=== PATIENT | male | born 1970 | race Caucasian/White ===

== ENCOUNTER 2016-11-20 11:39 | Outpatient (CLI) | payer BC | END 2016-11-20 11:40 | disposition home or self-care (01) | DX: G47.33 Obstructive sleep apnea (adult) (pediatric) (principal) ==

== ENCOUNTER 2017-01-08 16:02 | Outpatient (CLI) | payer BC | END 2017-01-08 16:03 | disposition home or self-care (01) | DX: G47.33 Obstructive sleep apnea (adult) (pediatric) (principal) ==

== ENCOUNTER 2017-03-06 15:03 | Outpatient (CLI) | payer BC | END 2017-03-06 15:04 | disposition home or self-care (01) | LOC: SC 15:03 | PROVIDERS: ATTEND Nurse Practitioner Family | DX: G47.33 Obstructive sleep apnea (adult) (pediatric) (principal) | CPT/HCPCS: 99212; 99214 ==

== ENCOUNTER 2018-04-02 18:03 | Emergency (ER) | payer BC ==
[2018-04-02 18:08] VITALS: BP 134/86
--- NOTE | 2018-04-02 18:54 | XRAY Report ---
Procedure Date: 04/02/2018 Accession Number: [id number] / [id number] Procedure: XR - Knee 4 View RT CPT Code: FULL RESULT: EXAM: RIGHT KNEE RADIOGRAPHY EXAM DATE: 04/02/2018 06:30 PM. CLINICAL HISTORY: Pain. COMPARISON: None. TECHNIQUE: 4 views. FINDINGS: Bones: Normal. No fractures or bone lesions. Joints: Normal. No effusion. No subluxations. Soft Tissues: Normal. No soft tissue swelling. IMPRESSION: Normal knee radiography. [facility]
--- NOTE | 2018-04-02 19:42 | ED Physician Documentation ---
History of Present Illness - Stated complaint Stated Complaint: RT KNEE INJ - Chief complaint Chief Complaint: Ext Problem - History obtained from History obtained from: Patient - Additonal information Additional information: 47-year-old male presents the emergency department with ongoing knee pain for the past 2 weeks. The patient initially injured it going up and down a ladder and doing activities. No recent trauma. The patient reports pain on the medial aspect of his knee. No reports of swelling or redness. No calf pain or leg swelling. Symptoms are described as moderate. No other associated symptoms. Review of Systems Constitutional: denies: Fever Cardiac: denies: Chest pain / pressure Skin: denies: Rash Musculoskeletal: reports: Neck pain, Joint pain. denies: Extremity pain, Joint swelling Neurologic: denies: Generalized weakness, Focal weakness Immunocompromised: denies: Chemotherapy PD PAST MEDICAL HISTORY - Past Medical History Past Medical History: Yes GI: GERD - Past Surgical History Past Surgical History: Yes - Present Medications Home Medications: Ambulatory Orders Medication Instructions Recorded Confirmed Famotidine 10 mg PO DAILY 07/04/15 07/04/15 Meloxicam [Mobic] 15 mg PO DAILY PRN #20 tablet 04/02/18 Naproxen Sodium [Aleve] 04/02/18 - Allergies Allergies/Adverse Reactions: Allergies Allergy/AdvReac Type Severity Reaction Status Date / Time amoxicillin Allergy Unknown Verified 04/02/18 18:08 - Social History Does the pt smoke?: No Smoking Status: Never smoker Does the pt drink ETOH?: Yes - Immunizations Immunizations are current?: Yes - POLST Patient has POLST: No PD ED PE NORMAL - General General: Alert and oriented X 3, No acute distress - HEENT HEENT: Atraumatic, PERRL, EOMI - Derm Derm: Normal color, Warm and dry - Extremities Extremities: No deformity, Normal ROM s pain, Other (Full active range of motion of the hip, knee and ankle. There is no swelling or erythematous changes. The patient does have tenderness along medial aspect of the knee.). No: No edema, No calf tenderness / cord Results - Vitals Vitals: Vital Signs - 24 hr 04/02/18 18:05 Temperature 36.9 C Heart Rate 72 Respiratory 20 Rate Blood Pressure 134/86 H O2 Saturation 100 Oxygen O2 Source Room air - Rads (name of study) Knee x-ray Radiology: Final report received, See rad report (No fracture dislocation) PD MEDICAL DECISION MAKING - ED course ED course: The patient's symptoms may represent a meniscus injury, currently there is no evidence of a septic arthritis and the patient appears appropriate for discharge and further workup as an outpatient.The patient understands and agrees. I discussed warning signs for decompensation and recommended returning to the emergency department immediately for worsening or concerns - Sepsis Event Vital Signs: Vital Signs - 24 hr 04/02/18 18:05 Temperature 36.9 C Heart Rate 72 Respiratory 20 Rate Blood Pressure 134/86 H O2 Saturation 100 Oxygen O2 Source Room air Departure - Departure Disposition: 01 Home, Self Care Clinical Impression: Knee pain Qualifiers: Chronicity: acute Laterality: unspecified laterality Qualified Code(s): M25.569 - Pain in unspecified knee Condition: Good Instructions: ED Sprain Knee Follow-Up: Yassine Saravia MD [Primary Care Provider] - Within 1 week (If your symptoms do not improve please ask your primary care doctor about an outpatient MRI, physical therapy and a outpatient referral to orthopedics) Prescriptions: Meloxicam [Mobic] 15 mg PO DAILY PRN #20 tablet PRN Reason: pain Comments: Please return for worsening symptoms or any concerns Discharge Date/Time: 04/02/18 19:49
== END 2018-04-02 19:49 | disposition home or self-care (01) ==
LOC: ED 18:03
DX: M25.561 Pain in right knee (principal); Z79.1 Long term (current) use of non-steroidal anti-inflammatories (NSAID); Y93.39 Activity, other involving climbing, rappelling and jumping off
CPT/HCPCS: 99283

== ENCOUNTER 2018-04-07 09:57 | Outpatient (CLI) | payer BC ==
--- NOTE | 2018-04-07 11:11 | Ultrasound Report ---
Procedure Date: 04/07/2018 Accession Number: [id number] / [id number] Procedure: US - Duplex Ext Veins Right CPT Code: FULL RESULT: EXAM: Duplex Ext Veins Right DATE: 04/07/2018 10:28 AM CLINICAL HISTORY: R LEG PAIN AT KNEE COMPARISON: None. TECHNIQUE: Real-time sonographic vascular imaging was performed by the ship's surveyor through the lower extremities utilizing both color-flow and Doppler spectral analysis. Multiple sales utility representative static images were saved for review. FINDINGS: Right: Common Femoral Vein (CFV): Normal. [Profunda Femoral Vein (PFV): Normal. Superficial Femoral Vein (SFV) Prox: Normal. Superficial Femoral Vein (SFV) Mid: Normal. Superficial Femoral Vein (SFV) Dist: Normal. Popliteal Vein: Normal. Posterior Tibial Veins: Normal. Peroneal Veins: Normal. IMPRESSION: Normal. No evidence for deep venous thrombosis. [facility]
== END 2018-04-07 09:58 | disposition home or self-care (01) ==
LOC: DI 09:57
PROVIDERS: ATTEND Nurse Practitioner Family
DX: M25.561 Pain in right knee (principal); M79.604 Pain in right leg